=== PATIENT | female | born 1985 | race Caucasian/White ===

== ENCOUNTER 2020-07-26 09:14 | Emergency (ER) | payer OTHER ==
[2020-07-26 09:59] LABS: RED BLOOD COUNT 4.45 M/UL (4.00-5.10); WHITE BLOOD COUNT 6.7 K/UL (4.5-11.0)
[2020-07-26 10:22] LABS: BUN/CREATININE RATIO 12 (0-10)
[2020-07-26] MEDS ORDERED: OMNICEF 300 MG300 MG PO (14:00)
== END 2020-07-26 14:20 | disposition home or self-care (01) ==
LOC: ER1 09:14
PROVIDERS: Emergency Medicine
DX: N39.0 Urinary tract infection, site not specified (principal); N83.201 Unspecified ovarian cyst, right side; K59.00 Constipation, unspecified; Z88.2 Allergy status to sulfonamides; Z88.8 Allergy status to other drugs, medicaments and biological substances; Z98.51 Tubal ligation status
CPT/HCPCS: 80053; 81001; 83605; 83690; 84703; 85025; 87040; 87086; 96365; 96375; 99284; J2270; J2405; J7030

== ENCOUNTER 2020-08-22 11:30 | Emergency (ER) | payer OTHER ==
[~2020-08-22 11:30] MED LIST: OMNICEF 300 MG300 MG PO
[2020-08-22 12:27] LABS: HEMOGLOBIN 11.8 gm/dl (12.3-15.3); RED BLOOD COUNT 4.38 M/UL (4.00-5.10); WHITE BLOOD COUNT 6.5 K/UL (4.5-11.0)
[2020-08-22 12:47] LABS: BUN/CREATININE RATIO 9 (0-10)
[2020-08-22] MEDS ORDERED: MACROBID 100 M100 MG PO (14:59)
== END 2020-08-22 15:36 | disposition home or self-care (01) ==
LOC: ER1 11:30
PROVIDERS: Physician Assistant
DX: N83.201 Unspecified ovarian cyst, right side (principal); E27.8 Other specified disorders of adrenal gland; N39.0 Urinary tract infection, site not specified; Z90.710 Acquired absence of both cervix and uterus; Z88.1 Allergy status to other antibiotic agents; Z88.5 Allergy status to narcotic agent
CPT/HCPCS: 80053; 81001; 84703; 85025; 96374; 99284; J1885; Q9967